=== PATIENT | female | born 1965 | race Caucasian/White ===

== ENCOUNTER 2017-04-26 20:59 | Emergency (ER) | payer OTHER | END 2017-04-26 22:48 | disposition home or self-care (01) | LOC: ER1 20:59 | DX: S16.1XXA Strain of muscle, fascia and tendon at neck level, initial encounter (principal); S29.012A Strain of muscle and tendon of back wall of thorax, initial encounter; I10 Essential (primary) hypertension; F17.210 Nicotine dependence, cigarettes, uncomplicated; V49.9XXA Car occupant (driver) (passenger) injured in unspecified traffic accident, initial encounter; Y93.89 Activity, other specified; Y92.410 Unspecified street and highway as the place of occurrence of the external cause; Z79.899 Other long term (current) drug therapy | CPT/HCPCS: 70450; 71020; 72125; 99284 ==

== ENCOUNTER → 2021-10-10 | Outpatient (CLI) | payer BC | LOC: EXRD 11:00 | DX: R31.9 Hematuria, unspecified (principal) | CPT/HCPCS: 76775 ==